=== PATIENT | female | born 1990 | race Caucasian/White ===

== ENCOUNTER 2021-03-19 20:53 | Emergency (ER) | payer OTHER ==
[~2021-03-19] VITALS: Ht 165.1 cm; Wt 55.8 kg
[2021-03-19 21:05] VITALS: BP_SYST 115
--- NOTE | 2021-03-19 21:05 | NUR ---
Patient to ER bed 1 to gown for evaluation. Side rails up.
--- NOTE | 2021-03-19 21:06 | NUR ---
Patient BIB by [facility] from [facility]. C/O Head injury x today. Patient reported, her head hit the [facility] of [facility], no LOC ~ 1300 PM, after incident, shaking, weakness, pain right side of head, pain rate 8/10, no numbness or tingling.
[2021-03-19] MEDS ORDERED: ACET325T53 PO (21:14)
[2021-03-19] MEDS ORDERED: LORA-258 PO (21:14)
[2021-03-19] MEDS ORDERED: ARGI1POW13 PO (21:14)
[2021-03-19] MEDS ORDERED: NOR10 PO (21:14)
--- NOTE | 2021-03-19 21:39 | NUR ---
ER Dr. Todd at bedside examining patient.
[2021-03-19] MEDS ORDERED: LORA-259 PO (21:48)
[2021-03-19] MEDS ORDERED: VITA-285 PO (21:48)
[2021-03-19] MEDS ORDERED: DIPH25CA83 PO (21:48)
[2021-03-19] MEDS ORDERED: HYDR-4037 PO (22:04)
[2021-03-19] MEDS ORDERED: CAT1PAT PO (22:04)
[2021-03-19] MEDS ORDERED: NAPR-688 PO (22:05)
[2021-03-19] MEDS ORDERED: INSU100V9 SQ (22:12)
[2021-03-19] MEDS ORDERED: INSU100V11 SQ (22:12)
[2021-03-19] MEDS ORDERED: LEVE500T9 PO (22:12)
[2021-03-19] MEDS: NAPROXEN 250 MG TABLET PO ONE (22:16)
[2021-03-19] MEDS: ACETAMINOPHEN 500 MG TABLET PO ONE (22:30)
--- NOTE | 2021-03-19 22:32 | NUR ---
BS 111, Provided [facility] as request.
[2021-03-19] MEDS ORDERED: SYN50 PO (22:49)
[2021-03-19] MEDS ORDERED: METO50TA7 PO (22:49)
[2021-03-19] MEDS ORDERED: NEU100 PO (22:49)
[2021-03-19] MEDS ORDERED: PHO667 PO (22:49)
[2021-03-19] MEDS ORDERED: LEVE750T66 PO (22:49)
[2021-03-19] MEDS ORDERED: HYDR-3917 PO (22:49)
[2021-03-19] MEDS ORDERED: PERC10 PO (22:49)
--- NOTE | 2021-03-19 22:49 | NUR ---
Medication reconciliation completed with information provided by patient's facility. Any prior medication reconciliation on file was reviewed and corrected.
[2021-03-19 23:35] VITALS: BP_SYST 101
--- NOTE | 2021-03-19 23:35 | NUR ---
Patient D/C to back to facility via BLS/EMS.
--- NOTE | 2021-03-19 23:40 | NUR ---
Report given to Brigida -staff of [facility].
== END 2021-03-19 23:40 | disposition home or self-care (01) ==
LOC: SED 20:53
DX: S09.90XA Unspecified injury of head, initial encounter (principal); F07.81 Postconcussional syndrome; E11.9 Type 2 diabetes mellitus without complications; Z88.8 Allergy status to other drugs, medicaments and biological substances; Z79.899 Other long term (current) drug therapy; W22.8XXA Striking against or struck by other objects, initial encounter; Y93.89 Activity, other specified; Y92.89 Other specified places as the place of occurrence of the external cause; Y99.8 Other external cause status
CPT/HCPCS: 99283